=== PATIENT | female | born 1960 | race Caucasian/White ===

== ENCOUNTER → 2016-07-07 | Day surgery (SDC) | payer OTHER ==
[~2016-07-07] MED LIST: ADVAIR 250-501 EACH INH; DILANTIN KAPSE100 MG; GLUMETZA500 MG/BOT PO; GLYBURIDE2.5 M1 PO; LOSARTAN-HCTZ1 EACH PO; LOVASTATIN20 MG PO; PHENOBARBITAL30 M1 PO; SINGULAIR PO; ZYRTEC10 M2 PO
--- NOTE | ~2016-07-07 | OR ---
Unit #: [id number] #: [id number] Patient: LUPIS CHAMPION [id number] [facility] [address] [place], [place] [address] [id number] O MR#: [id number] NAME: LUPIS CHAMPION ROOM: Date of Procedure: 07/07/2016 Admission Date: 07/07/2016 Surgeon: Ravin Sandoval M.D. : 1960 Attending Physician: Ravin Sandoval M.D. Primary Care Physician: Cristino Abarca M.D. OPERATIVE REPORT PRIMARY CARE PHYSICIAN Cristino Abarca M.D. PREOPERATIVE DIAGNOSIS Colorectal cancer screening. POSTOPERATIVE DIAGNOSIS Sigmoid diverticulosis. PROCEDURE PERFORMED Colonoscopy to cecum. ANESTHESIA Monitored anesthesia. INDICATIONS FOR PROCEDURE A 55-year-old female with a family history of colon cancer, due for surveillance. DESCRIPTION OF PROCEDURE The patient was admitted to [facility], positively identified, and transported to the endoscopy unit. After appropriate monitoring and positioning, she was sedated by the nurse inside sales representative. On rectal examination, there was no local anorectal pathology. Digital examination was unremarkable. Colonoscope was passed through the anal verge throughout the extent of the colon to the cecum, where the appendiceal orifice and ileocecal valve were photodocumented. On careful antegrade and retrograde visualization, no polyps were noted throughout the colon. She had scattered diverticula in the sigmoid colon. No evidence of diverticulitis. In the rectal vault, I retroflexed the scope and there was no significant internal hemorrhoidal disease. The patient tolerated the procedure well and transported to recovery in stable condition. Findings were discussed with her family. At this time, we would recommend a followup surveillance in 7 to 10 years if she remains otherwise asymptomatic. Dictated by... Ravin Sandoval M.D. RS/modl Unit #: [id number] #: [id number] Patient: LUPIS CHAMPION TD: 07/08/2016 03:12 JOB #: [id number] OPERATIVE REPORT Page 1 of 1 X Jaime,Ravin C MD X PROCEDURE OPERATIVE NOTE
--- NOTE | ~2016-07-07 | HP ---
Unit #: [id number] #: [id number] Patient: LUPIS RODNEY [id number] [address] [address] [id number] O MR#: [id number] NAME: LUPIS RODNEY. ROOM: Age: 55 Sex: F Admission Date: 07/07/2016 : 1960 Attending Physician: Ravin Sandoval M.D. Primary Care Physician: Cristino Abarca M.D. HISTORY AND PHYSICAL HISTORY OF PRESENT ILLNESS Ms. Rodney is a 55-year-old female with a strong family history of colon cancer who was due for surveillance colonoscopy. The patient denied any symptoms at this time. Her last colonoscopy was in 2009. PAST MEDICAL HISTORY Diabetes, hypertension, osteoarthritis, seizure disorder, hypercholesterolemia, asthma. She has had a history of pneumonia, leg fracture requiring open reduction internal fixation and she had open heart surgery as a child for a "hole" in the heart. I am uncertain if it was an ASD or a VSD. SOCIAL HISTORY Single. No children. The patient denies the use of alcohol or tobacco. She is on disability. FAMILY HISTORY Hypertension, hypercholesterolemia, Alzheimer dementia, diabetes, colon cancer in an uncle and several family members with colon polyps. ALLERGIES Keflex, Mucinex, Claritin and Benadryl. MEDICATIONS 1. Phenobarbital. 2. Dilantin. 3. Lovastatin. 4. Losartan. 5. Hydrochlorothiazide. 6. Glyburide. 7. Singulair. 8. Advair Diskus. 9. Zyrtec. She has not had a recent flu vaccine but she has had a pneumonia vaccine. REVIEW OF SYSTEMS Unremarkable. PHYSICAL EXAMINATION GENERAL APPEANCE: She is awake, alert, cooperative to examination. VITAL SIGNS: Height 4'9". Weight 144 lb. HEENT: Unremarkable. CARDIAC: Regular rhythm. Unit #: [id number] #: [id number] Patient: LUPIS RODNEY LUNGS: Clear. ABDOMEN: Soft. EXTREMITIES: No edema. NEUROLOGIC: Grossly intact. ASSESSMENT AND PLAN A 55-year-old female with a family history of colon cancer due for surveillance colonoscopy. We discussed the procedure including risks, benefits, complications and bowel prep. She understands and agrees to proceed. Dictated by Rhonda Galan/michell TD: 07/07/2016 13:04 JOB #: [id number] HISTORY AND PHYSICAL Page 1 of 1 X Ravin Sandoval MD X HISTORY AND PHYSICAL
== END | disposition home or self-care (01) ==
LOC: COPS 10:50
DX: Z12.11 Encounter for screening for malignant neoplasm of colon (principal); K57.30 Diverticulosis of large intestine without perforation or abscess without bleeding; Z80.0 Family history of malignant neoplasm of digestive organs; E11.9 Type 2 diabetes mellitus without complications; I10 Essential (primary) hypertension; M19.90 Unspecified osteoarthritis, unspecified site; E78.00 Pure hypercholesterolemia, unspecified; J45.909 Unspecified asthma, uncomplicated; Z83.71 Family history of colonic polyps
CPT/HCPCS: 82947